=== PATIENT | female | born 1960 | race African-American/Black ===

== ENCOUNTER 2020-03-03 09:41 | Outpatient (CLI) | payer OTHER ==
--- NOTE | 2020-03-03 12:49 | RAD ---
LEFT KNEE 4 VIEWS: HISTORY: Knee pain. FINDINGS: Medial and lateral joint spaces appear normally maintained. No evidence of fracture. No significant degenerative change. No evidence of significant joint effusion. IMPRESSION: Unremarkable left knee. POS: [facility]
== END 2020-03-03 09:42 | disposition home or self-care (01) ==
LOC: BICRAD 09:41 → MERGE 09:41 → BICRAD 09:42
PROVIDERS: ATTEND Family Medicine
DX: M25.562 Pain in left knee (principal)

== ENCOUNTER 2021-12-01 08:14 | Outpatient (CLI) | payer OTHER | END 2021-12-01 08:15 | disposition home or self-care (01) | LOC: MERGE 08:14 → BICMAMMO 08:14 | PROVIDERS: ATTEND Family Medicine | DX: Z12.31 Encounter for screening mammogram for malignant neoplasm of breast (principal); Z80.3 Family history of malignant neoplasm of breast | CPT/HCPCS: 77067 ==

== ENCOUNTER 2023-03-06 08:49 | Outpatient (CLI) | payer OTHER | END 2023-03-06 08:50 | disposition home or self-care (01) | LOC: BICMAMMO 08:49 | PROVIDERS: ATTEND Family Medicine | DX: Z12.31 Encounter for screening mammogram for malignant neoplasm of breast (principal) | CPT/HCPCS: 77067 ==

== ENCOUNTER 2023-11-18 07:48 | Outpatient (CLI) | payer OTHER | END 2023-11-18 07:49 | disposition home or self-care (01) | LOC: BICULT 07:48 | PROVIDERS: ATTEND Family Medicine | DX: R10.11 Right upper quadrant pain (principal) | CPT/HCPCS: 76705 ==